=== PATIENT | female | born 1970 | race Caucasian/White ===

== ENCOUNTER 2017-01-02 00:04 | Emergency (ER) | payer MEDICAID ==
[~2017-01-02] VITALS: Ht 162.6 cm; Wt 59.0 kg
[2017-01-02 00:17] VITALS: BP 148/84
[2017-01-02] MEDS ORDERED: MORPHINE SULFATE INJ 2 MG/ML DISP.SYRIN ONE (02:05)
[2017-01-02] MEDS ORDERED: MORPHINE SULFATE INJ 4 MG/ML DISP.SYRIN ONE (02:05)
[2017-01-02] MEDS ORDERED: ONDANSETRON 4 MG TAB.RAPDIS ONE (02:06)
[2017-01-02] MEDS: MORPHINE SULFATE INJ 2 MG/ML DISP.SYRIN IM ONE (02:19)
[2017-01-02] MEDS: ONDANSETRON 4 MG TAB.RAPDIS PO ONE (02:38)
== END 2017-01-02 03:48 | disposition home or self-care (01) ==
LOC: ER 00:09
DX: S23.3XXA Sprain of ligaments of thoracic spine, initial encounter (principal); S20.221A Contusion of right back wall of thorax, initial encounter; J45.909 Unspecified asthma, uncomplicated; E11.9 Type 2 diabetes mellitus without complications; Z88.1 Allergy status to other antibiotic agents; W18.2XXD Fall in (into) shower or empty bathtub, subsequent encounter; Y92.89 Other specified places as the place of occurrence of the external cause; Y93.89 Activity, other specified; Y99.8 Other external cause status
CPT/HCPCS: 71100-TC; 84703-TC; A4606; J2270; Q0162; Z7610

== ENCOUNTER 2017-08-17 07:35 | Emergency (ER) | payer MEDICAID ==
[~2017-08-17] VITALS: Ht 162.6 cm; Wt 65.8 kg
[2017-08-17 07:43] VITALS: BP 121/81
--- NOTE | 2017-08-17 07:43 | NUR ---
WORSENING DIFFUSE ABD PAIN X3 DAYS. DENIES GI BLEED STATES "I VOMITED BLOOD YESTERDAY". ON PERIOD AT THIS TIME
== END 2017-08-17 08:15 | disposition home or self-care (01) ==
LOC: ER 07:36
DX: K92.2 Gastrointestinal hemorrhage, unspecified (principal); E10.9 Type 1 diabetes mellitus without complications; J45.909 Unspecified asthma, uncomplicated; Z79.4 Long term (current) use of insulin; Z88.1 Allergy status to other antibiotic agents
CPT/HCPCS: A4606; Z7610

== ENCOUNTER 2018-01-18 05:36 | Emergency (ER) | payer MEDICAID ==
[~2018-01-18] VITALS: Ht 162.6 cm; Wt 72.6 kg
[2018-01-18 06:23] VITALS: BP 116/58
--- NOTE | 2018-01-18 06:25 | NUR ---
DR. COHEN AT BEDSIDE FOR EVAL.
--- NOTE | 2018-01-18 06:25 | NUR ---
BIBSELF C/O "ITCHING/RASH AROUND VAGINA X 1 WK" PT AOX3 RR EVEN AND UNLABORED. NO SOB NOTED. NAD NOTED. NO NVD AT THIS TIME. PT GOWNED. WAITING FOR MD BELLO.
== END 2018-01-18 06:59 | disposition home or self-care (01) ==
LOC: ER 05:40
DX: B37.3 Candidiasis of vulva and vagina (principal); E11.9 Type 2 diabetes mellitus without complications; J45.909 Unspecified asthma, uncomplicated; Z88.1 Allergy status to other antibiotic agents
CPT/HCPCS: 99283; A4606; Z7610

== ENCOUNTER → 2019-05-27 | Emergency (ER) | payer MEDICAID ==
[~2019-05-27] VITALS: Ht 162.6 cm; Wt 75.3 kg
[~2019-05-27] MED LIST: DEXAMETHASONE SOD PHOSPHATE 10 MG/ML VIAL IM STA; DEXAMETHASONE SOD PHOSPHATE 10 MG/ML VIAL ONE
--- NOTE | 2019-05-27 08:06 | NUR ---
PT NOT IN WAITING ROOM WHEN CALLED IN TRIAGE
[2019-05-27 08:08] VITALS: BP 135/78
== END | disposition home or self-care (01) ==
LOC: ER 07:46
DX: J02.9 Acute pharyngitis, unspecified (principal); J45.909 Unspecified asthma, uncomplicated; E11.9 Type 2 diabetes mellitus without complications; Z88.1 Allergy status to other antibiotic agents
CPT/HCPCS: 96372; 99283; J1100

== ENCOUNTER 2019-06-20 07:24 | Emergency (ER) | payer MEDICAID ==
[~2019-06-20] VITALS: Ht 162.6 cm; Wt 75.3 kg
[2019-06-20 08:21] VITALS: BP 122/71
== END 2019-06-20 08:22 | disposition home or self-care (01) ==
LOC: ER 07:24
DX: H60.91 Unspecified otitis externa, right ear (principal); J45.909 Unspecified asthma, uncomplicated; E11.9 Type 2 diabetes mellitus without complications; Z88.1 Allergy status to other antibiotic agents

== ENCOUNTER 2019-06-22 21:18 | Emergency (ER) | payer MEDICAID ==
[~2019-06-22] VITALS: Ht 162.6 cm; Wt 75.3 kg
[2019-06-22 21:32] VITALS: BP 134/57
[2019-06-22] MEDS ORDERED: predniSONE 20 MG TABLET ONE (22:08)
[2019-06-22] MEDS ORDERED: diphenhydrAMINE HCL 25 MG CAPSULE ONE (22:08)
[2019-06-22] MEDS ORDERED: FAMOTIDINE (20 MG) 20 MG TABLET ONE (22:08)
[2019-06-22] MEDS ORDERED: predniSONE 10 MG TABLET ONE (22:08)
[2019-06-22] MEDS ORDERED: predniSONE 20 MG TABLET PO ONE (22:30)
[2019-06-22] MEDS ORDERED: DIPHENHYDRAMINE HCL 12.5 MG/5 ML UDC PO ONE (22:30)
[2019-06-22] MEDS ORDERED: FAMOTIDINE (20 MG) 20 MG TABLET PO ONE (22:30)
== END 2019-06-22 22:26 | disposition home or self-care (01) ==
LOC: ER 21:21
DX: T78.40XA Allergy, unspecified, initial encounter (principal); H60.90 Unspecified otitis externa, unspecified ear; J45.909 Unspecified asthma, uncomplicated; E11.9 Type 2 diabetes mellitus without complications; Z88.1 Allergy status to other antibiotic agents; X58.XXXA Exposure to other specified factors, initial encounter
CPT/HCPCS: 99284; J7512 ×2; Q0163 ×2

== ENCOUNTER 2022-07-16 15:52 | Emergency (ER) | payer MEDICAID ==
[~2022-07-16] VITALS: Ht 162.6 cm; Wt 86.2 kg
[2022-07-16 16:57] VITALS: BP 148/93
[2022-07-16] MEDS ORDERED: TDAP [DIPH/PERTUSSIS/TET] 0.5 ML VIAL IM ONE ×2 (17:30→18:00)
[2022-07-16] MEDS ORDERED: NAPR-1009 PO (17:49)
[2022-07-16] MEDS ORDERED: MUPI22OI2 TP (17:49)
[2022-07-16] MEDS ORDERED: CIPR500T5 PO (17:49)
--- NOTE | 2022-07-16 18:34 | NUR ---
Patient discharged to home in stable condition. Written and verbal after care instructions given. Patient verbalizes understanding of instruction.
== END 2022-07-16 18:34 | disposition home or self-care (01) ==
LOC: ER 15:54
DX: S91.332A Puncture wound without foreign body, left foot, initial encounter (principal); E10.9 Type 1 diabetes mellitus without complications; J45.909 Unspecified asthma, uncomplicated; Z88.1 Allergy status to other antibiotic agents; W22.8XXA Striking against or struck by other objects, initial encounter; Y93.89 Activity, other specified; Y92.89 Other specified places as the place of occurrence of the external cause; Y99.8 Other external cause status
CPT/HCPCS: 73630-TC; 90715

== ENCOUNTER 2023-07-27 03:17 | Emergency (ER) | payer MEDICAID ==
[~2023-07-27] VITALS: Ht 162.6 cm; Wt 77.1 kg
[~2023-07-27 03:17] MED LIST changes: +CIPR500T5 PO; -DEXAMETHASONE SOD PHOSPHATE 10 MG/ML VIAL IM STA; -DEXAMETHASONE SOD PHOSPHATE 10 MG/ML VIAL ONE; +MUPI22OI2 TP; +NAPR-1009 PO
[2023-07-27 04:20] VITALS: BP 138/83; TEMP 98.1; O2SAT 98
== END 2023-07-27 04:34 | disposition left against medical advice (07) ==
LOC: ER 03:18
DX: I10 Essential (primary) hypertension (principal); Z53.21 Procedure and treatment not carried out due to patient leaving prior to being seen by health care provider